=== PATIENT | female | born 1995 | race Caucasian/White ===

== ENCOUNTER 2017-01-11 20:44 | Emergency (ER) | payer OTHER ==
[~2017-01-11] VITALS: Ht 157.5 cm; Wt 86.3 kg
[~2017-01-11 20:44] MED LIST: CEPH-264 PO
[2017-01-11 20:55] VITALS: BP 123/62
--- NOTE | 2017-01-11 21:25 | PHYS DOC ---
Past History Past Medical History: No Pertinent History Past Surgical History: Tubal ligation, Other Smoking: Non-smoker Alcohol Use: None Drug Use: None Adult General Chief Complaint Chief Complaint: COUGH HPI HPI He is a pleasant otherwise healthy 21-year-old female with history of history of nonproductive cough. This certainly is a aefj-ak-dset mom with 3 children at home who presents with a nonproductive cough runny nose congestion for last 3 weeks. She is tried multiple elmn-zrk-cmcicrr medications with limited success she is denies chest pain or shortness of breath with this cough she has had multiple small intermittent nosebleeds secondary to coughing so hard and post tussive emesis. She denies any hearing loss or ear drainage mucopurulent discharge from her nose high fevers or sick contacts. She also denies any travel outside the country recent antibiotic use or sick contacts with similar symptoms. Looking for a cough suppressant and want to make sure she doesn't have bronchitis. She is a nonsmoker there is a family history of asthma in her brother that was resolved when he outgrew it. Review of Systems Review of Systems Constitutional: Denies fever or chills [] Eyes: Denies change in visual acuity, redness, or eye pain [] HENT: He's had nasal congestion and intermittent epistaxis Respiratory: Has had intermittent cough nonproductive with no shortness of breath. Cardiovascular: No additional information not addressed in HPI [] GI: Rising abdominal pain and has had posttussive emesis times one nonbilious nonbloody. : Denies dysuria or hematuria [] Musculoskeletal: Denies back pain or joint pain [] Integument: Denies rash or skin lesions [] Neurologic: Denies headache, focal weakness or sensory changes [] Endocrine: Denies polyuria or polydipsia [] Allergies Allergies Allergies Coded Allergies Type Severity Reaction Last Updated Verified Iodinated Contrast Media - Oral and Allergy Intermediate 10/18/16 Yes shellfish derived Allergy Intermediate 10/18/16 Yes Physical Exam Physical Exam Constitutional: Well developed, well nourished, patient is uncomfortable but nontoxic. Non-cough is evident on exam. HENT: Normocephalic, atraumatic, bilateral external ears normal, noted nasal discharge clear oropharynx clear with mild erythema no exudates no tonsillar hypertrophy. Eyes: PERRLA, EOMI, conjunctiva normal, no discharge. [] Neck: Normal range of motion, no tenderness, supple, no stridor. [] Cardiovascular:Heart rate regular rhythm, no murmur [] Lungs & Thorax: Bilateral breath sounds clear to auscultation A be a slight wheeze with cough. Skin: Warm, dry, no erythema, no rash. [] Back: No tenderness, no CVA tenderness. [] Extremities: No tenderness, no cyanosis, no clubbing, ROM intact, no edema. [] Neurologic: Alert and oriented X 3, normal motor function, normal sensory function, no focal deficits noted. [] Psychologic: Affect normal, judgement normal, mood normal. [] Current Patient Data Vital Signs Vital Signs Date Time Temp Pulse Resp B/P (MAP) Pulse Ox O2 Delivery O2 Flow Rate FiO2 01/11/17 20:55 98.8 110 20 97 Room Air EKG EKG [] Radiology/Procedures Radiology/Procedures Chest x-ray time 214501/11/2017 read by me and states no clear infiltrate questional patchy increased hilar markings which may represent viral pneumonitis no clear consolidation or pleural effusion noted no pneumothorax no pneumomediastinum no subcutaneous air bony windows are within normal limits with no evidence of fracture cardiac set is within normal limits chest x-ray read by me [] Course & Med Decision Making Course & Med Decision Making Pertinent Labs and Imaging studies reviewed. (See chart for details) Trev with a 3 week history of nonproductive cough runny nose and congestion she has had no evidence of wheezing but has had no improvement with over-the- counter medications. She does have a history of seizure disorder facility for medication seizure. On examination she has a slight wheeze with cough which may be secondary to a mild reactive airway disease. She'll be given an inhaler Pro Air with spacer as well as a course of antibiotics and close follow-up with her primary care doctor. Differential diagnosis includes pneumonia, mediastinitis, pneumonitis, viral syndrome, postnasal drip, esophageal reflux, fluids, and reactive airway disease. At this point in time patient is hemodynamic stable x- rays clear any focal infiltrates. Patient will be treated with albuterol, azithromycin, and Tylenol 3. His noted patient's vital signs showed mild tachycardia which is likely from cmgk-pti-dvsvpvw medication to include Dimetapp , Robitussin with pseudoephedrine as well as DayQuil and NyQuil. These over-the- counter medications with Benadryl or antihistamines or pseudoephedrine and the may cause tachycardias. There is no obvious signs of toxidrome Impression bronchitis infectious, cough Disposition discharge with 48 of follow-up to primary care doctor precautions given [] Kwame Disclaimer Dragon Disclaimer This chart was dictated in whole or in part using Voice Recognition software in a busy, high-work load, and often noisy Emergency Department environment. It may contain unintended and wholly unrecognized errors or omissions. Departure Departure: Impression: Primary Impression: Bronchitis Disposition: HOME, SELF-CARE Condition: IMPROVED Referrals: PCP,UNKNOWN (PCP) Patient Instructions: Acute Bronchitis Additional Instructions: Please return for any new or increasing symptoms or Any cough. Productive with a fever greater than 102.2 despite treatment please return for any questions or concerns she might have or new developing rash change in voice sore throat that' s getting progressively worse with difficulty swallowing. Scripts Acetaminophen With Codeine (TYLENOL WITH CODEINE #3 TABLET) 1 Each Tablet 1 TAB PO Q4-6HRS, #10 TAB Prov: SASHA SIDHU MD 01/11/17 Azithromycin (ZITHROMAX) 500 Mg Tablet 1 TAB PO DAILY for 5 Days, #6 TAB Prov: SASHA SIDHU MD 01/11/17 Albuterol Sulfate (PROAIR HFA INHALER) 8.5 Gm Hfa.aer.ad 2 PUFF INH PRN Q6HRS Y for SHORTNESS OF BREATH for 10 Days, INHALER 0 Refills Prov: SASHA SIDHU MD 01/11/17 SASHA SIDHU MD January 11, 2017 21:25
[2017-01-11] MEDS ORDERED: ACET-704 PO (22:12)
[2017-01-11] MEDS ORDERED: AZIT500T PO (22:12)
[2017-01-11] MEDS ORDERED: ALBU8.5H8 INH (22:12)
[2017-01-11] MEDS ORDERED: ACETAMINOPHEN/CODEINE 300/30MG TABLET PO ONE (22:45)
--- NOTE | 2017-01-12 08:26 | RAD ---
Indication cough. Frontal and lateral views of the chest were obtained. Comparison is made to an examination 10/18/2016. The heart, pulmonary vessels and mediastinum appear normal. The lungs are clear of acute infiltrates. There is no pleural fluid or pneumothorax and the bony structures appear grossly intact. IMPRESSION: No acute finding apparent in the chest
== END 2017-01-11 22:30 | disposition home or self-care (01) ==
LOC: ER 20:44
DX: J20.9 Acute bronchitis, unspecified (principal); R04.0 Epistaxis; Z91.041 Radiographic dye allergy status; Z91.013 Allergy to seafood
CPT/HCPCS: 71020; 99284

== ENCOUNTER 2017-05-22 17:48 | Emergency (ER) | payer OTHER ==
[~2017-05-22] VITALS: Ht 157.5 cm; Wt 81.6 kg
[~2017-05-22 17:48] MED LIST changes: +ACET-704 PO; +ALBU8.5H8 INH; +AZIT500T PO
[2017-05-22] MEDS ORDERED: IV NORMAL SALINE 1,000ML 1,000 ML IV ONE (18:15)
--- NOTE | 2017-05-22 18:34 | EKG ---
[address] [address] Test Date: 2017-05-22 Test Time: 18:28:29 Pat Name: GERMAN LORD Department: Room: Gender: F Paper Supervisor: MÓNICA : 1995 Requested By: JACKLYN COLLIER Order Number: [id number] Reading MD: Erwin Perez Measurements Intervals [place] Rate: 60 P: 36 MA: 134 QRS: 73 QRSD: 82 T: 52 QT: 388 QTc: 392 Interpretive Statements SINUS RHYTHM Electronically Signed On 05-26-2017 11:15:59 CDT by Erwin Perez
[2017-05-22 18:40] LABS: CALCIUM 8.4 mg/dL (8.5-10.1); CREATININE 0.5 mg/dL (0.6-1.0); GFR 152.9; POTASSIUM 3.3 mmol/L (3.5-5.1)
[2017-05-22 18:43] LABS: BASO % 0 % (0-3); EOS # 0.1 x10^3/uL (0.0-0.7); EOS % 2 % (0-3); HEMATOCRIT 38.2 % (36.0-47.0); HEMOGLOBIN 13.2 g/dL (12.0-15.5); LYMPH # 3.2 x10^3/uL (1.0-4.8); LYMPH % 38 % (24-48); MEAN CORPUSCULAR HEMOGLOBIN 31 pg (25-35); MEAN CORPUSCULAR HGB CONC 35 g/dL (31-37); MEAN CORPUSCULAR VOLUME 90 fL (79-100); MONO # 0.6 x10^3/uL (0.0-1.1); MONO % 8 % (0-9); NEUT # 4.3 x10^3uL (1.8-7.7); NEUT % 52 % (31-73); PLATELET COUNT 156 x10^3/uL (140-400); RED BLOOD COUNT 4.24 x10^6/uL (3.50-5.40); RED CELL DISTRIBUTION WIDTH 14.2 % (11.5-14.5); WHITE BLOOD COUNT 8.3 x10^3/uL (4.0-11.0)
--- NOTE | 2017-05-22 19:03 | ED.ADGEN ---
Past History Past Medical History: Seizure Past Surgical History: Tubal ligation, Other Smoking: Non-smoker Alcohol Use: None Drug Use: None Adult General HPI HPI Patient is a 21-year-old woman, history of seizure disorder for which she takes Keppra, who follows with Dr. Telles of neurology, who presents to the emergency department after being found lying in her bedroom by her mother. Patient states that she's not sure what happened, she may have had a seizure. Patient's mother states this happen multiple times previously. Patient states she was seen by her neurologist a few days ago, an EEG performed that did not reveal any concerning findings, as been taking her Keppra as directed. She states she has seizures frequently. She states they told her they could be "due to stress". She denies any ingestions or exposures, any recent injuries. States she has been compliant with her medications, states she is currently being treated for urinary tract infection with antibiotics. She was seen in the emergency department and another facility yesterday at that time had an ultrasound performed that revealed a hemangioma in her liver. She is complaining of a headache, typical of her seizures, and soreness in her neck and back. Weakness, numbness or tingling, fevers or chills, nausea vomiting, diarrhea, no rashes, no swelling extremities, no preceding symptoms or complaints. Denies any drugs, alcohol or cigarettes. Patient's mother is at bedside, she states patient's presentation is consistent with previous episodes of seizure. Review of Systems Review of Systems Constitutional: Denies fever or chills [] Eyes: Denies change in visual acuity, redness, or eye pain [] HENT: Denies nasal congestion or sore throat [] Respiratory: Denies cough or shortness of breath [] Cardiovascular: No additional information not addressed in HPI [] GI: Denies abdominal pain, nausea, vomiting, bloody stools or diarrhea [] : Denies dysuria or hematuria [] Musculoskeletal: Denies back pain or joint pain []is complaining of soreness on the left side of her neck, and lower back. Integument: Denies rash or skin lesions [] Neurologic: Denies focal weakness or sensory changes, complaining of posterior headache. [] Endocrine: Denies polyuria or polydipsia [] Current Medications Current Medications Current Medications Medications (Trade) Dose Ordered Sig/Cata Start Time Stop Time Status Last Admin Dose Admin Potassium Chloride (KCl Oral Soln) 40 meq 1X ONCE 05/22/17 20:30 05/22/17 20:31 DC 05/22/17 20:22 40 MEQ Sodium Chloride 1,000 ml @ 1,000 mls/hr 1X ONCE 05/22/17 18:15 05/22/17 19:14 DC 05/22/17 18:36 1,000 MLS/HR Allergies Allergies Allergies Coded Allergies Type Severity Reaction Last Updated Verified Iodinated Contrast Media - Oral and Allergy Intermediate 10/18/16 Yes shellfish derived Allergy Intermediate 10/18/16 Yes Physical Exam Physical Exam Constitutional: Well developed, well nourished, no acute distress, non-toxic appearance. [] HENT: Normocephalic, atraumatic, bilateral external ears normal, oropharynx moist, no oral exudates, nose normal. [] Eyes: PERRLA, EOMI, conjunctiva normal, no discharge. [] Neck: Normal range of motion, patient with c-collar placed, which was cleared without issue, patient with mild thrush palpation in the left paraspinal muscles and into left trapezius. No tenderness, supple, no stridor. [] Cardiovascular:Heart rate regular rhythm, no murmur, S1, S2, rubs or gallops. [] Lungs & Thorax: Bilateral breath sounds clear to auscultation, no wheezing, rhonchi, rales. No chest or crepitus or tenderness. [] Abdomen: Bowel sounds normal, soft, no tenderness, no masses, no pulsatile masses. [] Skin: Warm, dry, no erythema, no rash. [] Back: No midline tenderness, no cells or deformities, patient with mild thrush palpation in the paraspinal muscles of the right lumbar spine, mild tissue tension noted, no lesions, no signs of trauma, no CVA tenderness. [] Extremities: No tenderness, no cyanosis, no clubbing, ROM intact, no edema. [] Neurologic: Alert and oriented X 3, normal motor function, normal sensory function, no focal deficits noted. []Patient with 5 out of 5 strength in all extremities, following all commands without issue, with a GCS of 15. Psychologic: Affect normal, judgement normal, mood normal. [] Current Patient Data Vital Signs Vital Signs Date Time Temp Pulse Resp B/P (MAP) Pulse Ox O2 Delivery O2 Flow Rate FiO2 05/22/17 19:18 98.3 74 20 118/53 (74) 98 Room Air Lab Results Laboratory Tests Test 05/22/17 18:20 05/22/17 19:05 White Blood Count 8.3 x10^3/uL (4.0-11.0) Red Blood Count 4.24 x10^6/uL (3.50-5.40) Hemoglobin 13.2 g/dL (12.0-15.5) Hematocrit 38.2 % (36.0-47.0) Mean Corpuscular Volume 90 fL (79-100) Mean Corpuscular Hemoglobin 31 pg (25-35) Mean Corpuscular Hemoglobin Concent 35 g/dL (31-37) Red Cell Distribution Width 14.2 % (11.5-14.5) Platelet Count 156 x10^3/uL (140-400) Neutrophils (%) (Auto) 52 % (31-73) Lymphocytes (%) (Auto) 38 % (24-48) Monocytes (%) (Auto) 8 % (0-9) Eosinophils (%) (Auto) 2 % (0-3) Basophils (%) (Auto) 0 % (0-3) Neutrophils # (Auto) 4.3 x10^3uL (1.8-7.7) Lymphocytes # (Auto) 3.2 x10^3/uL (1.0-4.8) Monocytes # (Auto) 0.6 x10^3/uL (0.0-1.1) Eosinophils # (Auto) 0.1 x10^3/uL (0.0-0.7) Basophils # (Auto) 0.0 x10^3/uL (0.0-0.2) Sodium Level 141 mmol/L (136-145) Potassium Level 3.3 mmol/L (3.5-5.1) L Chloride Level 106 mmol/L (98-107) Carbon Dioxide Level 25 mmol/L (21-32) Anion Gap 10 (6-14) Blood Urea Nitrogen 6 mg/dL (7-20) L Creatinine 0.5 mg/dL (0.6-1.0) L Estimated GFR (Cockcroft-Gault) 152.9 Glucose Level 80 mg/dL (70-99) Lactic Acid Level 0.9 mmol/L (0.4-2.0) Calcium Level 8.4 mg/dL (8.5-10.1) L Total Bilirubin 0.3 mg/dL (0.2-1.0) Direct Bilirubin 0.1 mg/dL (0.0-0.2) Aspartate Amino Transferase (AST) 9 U/L (15-37) L Alanine Aminotransferase (ALT) 15 U/L (14-59) Alkaline Phosphatase 74 U/L (46-116) Total Protein 5.9 g/dL (6.4-8.2) L Albumin 3.2 g/dL (3.4-5.0) L Urine Collection Type Unknown Urine Color Yellow Urine Clarity Hazy Urine pH 6.5 Urine Specific [place] 1.025 Urine Protein Trace (NEG-TRACE) Urine Glucose (UA) Neg mg/dL (NEG) Urine Ketones (Stick) >=160 mg/dL (NEG) Urine Blood Neg (NEG) Urine Nitrite Neg (NEG) Urine Bilirubin Neg (NEG) Urine Urobilinogen Dipstick 0.2 mg/dL (0.2 mg/dL) Urine Leukocyte Esterase Trace (NEG) Urine RBC 1-2 /HPF (0-2) Urine WBC 1-4 /HPF (0-4) Urine Squamous Epithelial Cells Mod /LPF Urine Bacteria 0 /HPF (0-FEW) Urine Mucus Marked /LPF Urine Opiates Screen Neg (NEG) Urine Methadone Screen Neg (NEG) Urine Barbiturates Neg (NEG) Urine Phencyclidine Screen Neg (NEG) Urine Amphetamine/Methamphetamine Neg (NEG) Urine Benzodiazepines Screen Neg (NEG) Urine Cocaine Screen Neg (NEG) Urine Cannabinoids Screen Neg (NEG) Urine Ethyl Alcohol Neg (NEG) EKG EKG EC: Sinus rhythm, heart rate 60 beats are minute, upright axis, QTC of 392, MS 134, QRS of 82, no ST elevations or depressions, no evidence of acute ST abnormalities. As interpreted by me.[] Radiology/Procedures Radiology/Procedures Not indicated.[] Course & Med Decision Making Course & Med Decision Making Pertinent Labs and Imaging studies reviewed. (See chart for details) Patient moving all extremities, following all commands, has a mild headache, consistent with previous seizure episodes per her report report of mother bedside. Laboratory studies obtained, reveal a lactic is normal at 0.9, potassium is slightly low at 3.3, no other concerning findings identified. I did attempt to reach the patient's neurologist, Dr. Telles, message left at [phone] and [phone], but was unsuccessful in speaking to the physician. Patient was observed in the emergency department for more than 4 hours, without recurrence of any concerning symptoms, she is amply without difficulty, and taking by mouth fluids, conversing, and has developed no concerning findings. I discussed with patient that was unable to reach Dr. dumont at this time, patient states that she is ready to be discharged home, and will contact the office tomorrow morning for additional discussion and evaluation. We did discuss concerning symptoms that prompt return with both patient and mother bedside, patient and mother voiced understanding and agreement with plan and precautions. Patient to continue medications, and return to the ED if any new or concerning symptoms develop. Final Impression Final Impression [] Problems: Dragon Disclaimer Dragon Disclaimer This electronic medical record was generated, in whole or in part, using a voice recognition dictation system. Departure: Impression: Primary Impression: Seizure Disposition: 01 HOME, SELF-CARE Condition: IMPROVED JACKLYN COLLIER DO May 22, 2017 19:03
[2017-05-22 19:12] LABS: ALBUMIN 3.2 g/dL (3.4-5.0); DIRECT BILIRUBIN 0.1 mg/dL (0.0-0.2); TOTAL BILIRUBIN 0.3 mg/dL (0.2-1.0); TOTAL PROTEIN 5.9 g/dL (6.4-8.2)
[2017-05-22 19:34] LABS: BARBITURATES NEG (NEG); BENZODIAZEPINES NEG (NEG); CANNABINOIDS NEG (NEG); COCAINE NEG (NEG); METHADONE NEG (NEG); OPIATES NEG (NEG); PHENCYCLIDINE NEG (NEG)
[2017-05-22 19:35] LABS: AMPHETAMINE/METHAMPHETAMINE NEG (NEG)
[2017-05-22 19:49] LABS: BACTERIA,URINE 0 /HPF (0-FEW); BILIRUBIN,URINE NEG (NEG); CLARITY,URINE HAZY; COLOR,URINE YELLOW; GLUCOSE,URINE NEG (NEG); NITRITE,URINE NEG (NEG); SQUAMOUS EPITHELIAL CELL,UR MOD /LPF; UROBILINOGEN,URINE 0.2 mg/dL (0.2 mg/dL)
[2017-05-22] MEDS ORDERED: POTASSIUM CHLORIDE 20 MEQ/15 ML ORAL LIQUID. PO ONE (20:30)
[2017-05-22 22:00] VITALS: BP 131/79
== END 2017-05-22 22:50 | disposition home or self-care (01) ==
LOC: ER 17:48
DX: G40.909 Epilepsy, unspecified, not intractable, without status epilepticus (principal); R51 Headache; M54.2 Cervicalgia; M54.5 Low back pain; Z87.440 Personal history of urinary (tract) infections; Z91.041 Radiographic dye allergy status; Z91.013 Allergy to seafood
CPT/HCPCS: 36415; 80048; 80076; 80307; 81001; 83605; 85025; 93005; 96360; 96361; 99285-25; G0479; J7030

== ENCOUNTER 2017-08-02 11:54 | Emergency (ER) | payer OTHER ==
[2017-08-02] MEDS ORDERED: IV NORMAL SALINE 1,000ML 1,000 ML IV ONE ×2 (12:45)
[2017-08-02] MEDS ORDERED: ONDANSETRON PF 4 MG/2 ML VIAL. IV ONE (13:00)
[2017-08-02 13:32] LABS: BASO % 0 % (0-3); EOS # 0.1 x10^3/uL (0.0-0.7); EOS % 1 % (0-3); HEMOGLOBIN 14.4 g/dL (12.0-15.5); LYMPH % 44 % (24-48); MEAN CORPUSCULAR HEMOGLOBIN 31 pg (25-35); MEAN CORPUSCULAR HGB CONC 34 g/dL (31-37); MEAN CORPUSCULAR VOLUME 91 fL (79-100); MONO # 0.6 x10^3/uL (0.0-1.1); MONO % 7 % (0-9); NEUT # 4.3 x10^3uL (1.8-7.7); NEUT % 48 % (31-73); PLATELET COUNT 176 x10^3/uL (140-400); RED BLOOD COUNT 4.62 x10^6/uL (3.50-5.40); RED CELL DISTRIBUTION WIDTH 13.5 % (11.5-14.5); WHITE BLOOD COUNT 9.1 x10^3/uL (4.0-11.0)
[2017-08-02 13:43] LABS: CLARITY,URINE CLOUDY; COLOR,URINE YELLOW
[2017-08-02 13:44] LABS: BILIRUBIN,URINE NEG (NEG); GLUCOSE,URINE NEG (NEG); NITRITE,URINE NEG (NEG); RBC,URINE OCC /HPF (0-2); UROBILINOGEN,URINE 2 mg/dL (0.2 mg/dL)
[2017-08-02 13:45] LABS: ALBUMIN 3.5 g/dL (3.4-5.0); CALCIUM 9.1 mg/dL (8.5-10.1); CREATININE 0.6 mg/dL (0.6-1.0); GFR 123.9; POTASSIUM 4.1 mmol/L (3.5-5.1); TOTAL BILIRUBIN 0.4 mg/dL (0.2-1.0)
[2017-08-02 13:45] LABS: BACTERIA,URINE 0 /HPF (0-FEW); SQUAMOUS EPITHELIAL CELL,UR FEW /LPF
--- NOTE | 2017-08-02 14:54 | PHYS DOC ---
Past History Past Medical History: Seizure Past Surgical History: Tubal ligation, Other Smoking: Non-smoker Alcohol Use: None Drug Use: None Adult General Chief Complaint Chief Complaint: DIZZY/LIGHT HEADED HPI HPI Patient is a 21-year-old female who presents to the ER today secondary to dizziness. Patient reports that she's had a history significant for a gastric bypass done. Patient reports she's had decreased by mouth intake and thinks that she might be dehydrated. Patient denies any nausea vomiting diarrhea. Patient reports no change in by mouth intake since her bypass although she has minimal intake orally secondary to her bypass. Patient reports that she gets dizzy when she sits up. Sometimes feels dizzy when she lays down as well. Patient has any fevers shakes chills nausea vomiting diarrhea chest pain terns of breath cough cold rhinorrhea. Patient denies any dysuria frequency urgency. Patient has any melena or bright red blood per rectum. Review of systems: Constitutional: Denies fever or chills Eyes: Denies change in visual acuity, redness, or eye pain HENT: Denies nasal congestion or sore throat Respiratory: Denies cough or shortness of breath All other systems were reviewed and found to be within normal limits, except as documented in this note. Physical exam: Constitutional: Well developed, well nourished, no acute distress, non-toxic appearance. HENT: Normocephalic, atraumatic, bilateral external ears normal, nose normal. Eyes: PERRLA, EOMI, conjunctiva normal, no discharge. Neck: Normal range of motion, no tenderness, supple, no stridor. Cardiovascular: Heart rate regular rhythm, Lungs & Thorax: Bilateral breath sounds clear to auscultation Abdomen: No abdominal distention. Skin: Warm, dry, no erythema, no rash. Back: Normal spinal curvature Extremities: No tenderness, no cyanosis, no clubbing, ROM intact, no edema. Neurologic: Alert and oriented X 3, normal motor function, normal sensory function, no focal deficits noted. Psychologic: Affect normal, judgement normal, mood normal. Patient's ER physical exam was most unremarkable: Abdomen was soft nontender no rebound or guarding. Normal active bowel sounds. No psoas or obturator signs. Neuro exam was unremarkable. She is alert awake and oriented 3. No nystagmus. TMs were clear. Labs reviewed: Assessment and plan: 1. Dizziness: Most likely secondary to dehydration. Patient is not exhibiting signs or symptoms consistent with a neurological deficit. Patient was given 2 L of normal saline here in the ED and feels significantly improved. Patient's labs were all within normal limits. Patient be discharged home with instructions follow-up with primary care physician on Friday. Current Medications Current Medications Current Medications Medications (Trade) Dose Ordered Sig/Cata Start Time Stop Time Status Last Admin Dose Admin Ondansetron HCl (Zofran) 4 mg 1X ONCE 08/02/17 13:00 08/02/17 13:01 DC Sodium Chloride 1,000 ml @ 1,000 mls/hr 1X ONCE 08/02/17 12:45 08/02/17 13:44 DC 08/02/17 14:20 1,000 MLS/HR Allergies Allergies Allergies Coded Allergies Type Severity Reaction Last Updated Verified Iodinated Contrast Media - Oral and Allergy Intermediate 10/18/16 Yes shellfish derived Allergy Intermediate 10/18/16 Yes Current Patient Data Lab Results Laboratory Tests Test 08/02/17 12:30 08/02/17 13:15 08/02/17 14:14 Urine Collection Type Unknown Urine Color Yellow Urine Clarity Cloudy Urine pH >8.5 Urine Specific [place] 1.020 Urine Protein 30 mg/dl (NEG-TRACE) Urine Glucose (UA) Neg mg/dL (NEG) Urine Ketones (Stick) >=160 mg/dL (NEG) Urine Blood Neg (NEG) Urine Nitrite Neg (NEG) Urine Bilirubin Neg (NEG) Urine Urobilinogen Dipstick 2 mg/dL (0.2 mg/dL) Urine Leukocyte Esterase Trace (NEG) Urine RBC Occ /HPF (0-2) Urine WBC 5-10 /HPF (0-4) Urine Squamous Epithelial Cells Few /LPF Urine Bacteria 0 /HPF (0-FEW) Urine Mucus Marked /LPF White Blood Count 9.1 x10^3/uL (4.0-11.0) Red Blood Count 4.62 x10^6/uL (3.50-5.40) Hemoglobin 14.4 g/dL (12.0-15.5) Hematocrit 42.0 % (36.0-47.0) Mean Corpuscular Volume 91 fL (79-100) Mean Corpuscular Hemoglobin 31 pg (25-35) Mean Corpuscular Hemoglobin Concent 34 g/dL (31-37) Red Cell Distribution Width 13.5 % (11.5-14.5) Platelet Count 176 x10^3/uL (140-400) Neutrophils (%) (Auto) 48 % (31-73) Lymphocytes (%) (Auto) 44 % (24-48) Monocytes (%) (Auto) 7 % (0-9) Eosinophils (%) (Auto) 1 % (0-3) Basophils (%) (Auto) 0 % (0-3) Neutrophils # (Auto) 4.3 x10^3uL (1.8-7.7) Lymphocytes # (Auto) 4.0 x10^3/uL (1.0-4.8) Monocytes # (Auto) 0.6 x10^3/uL (0.0-1.1) Eosinophils # (Auto) 0.1 x10^3/uL (0.0-0.7) Basophils # (Auto) 0.0 x10^3/uL (0.0-0.2) Sodium Level 142 mmol/L (136-145) Potassium Level 4.1 mmol/L (3.5-5.1) Chloride Level 106 mmol/L (98-107) Carbon Dioxide Level 29 mmol/L (21-32) Anion Gap 7 (6-14) Blood Urea Nitrogen 14 mg/dL (7-20) Creatinine 0.6 mg/dL (0.6-1.0) Estimated GFR (Cockcroft-Gault) 123.9 BUN/Creatinine Ratio 23 (6-20) H Glucose Level 87 mg/dL (70-99) Calcium Level 9.1 mg/dL (8.5-10.1) Total Bilirubin 0.4 mg/dL (0.2-1.0) Aspartate Amino Transferase (AST) 16 U/L (15-37) Alanine Aminotransferase (ALT) 20 U/L (14-59) Alkaline Phosphatase 74 U/L (46-116) Total Protein 7.0 g/dL (6.4-8.2) Albumin 3.5 g/dL (3.4-5.0) Albumin/Globulin Ratio 1.0 (1.0-1.7) POC Urine HCG, Qualitative hcg negative (Negative) EKG EKG [] Radiology/Procedures Radiology/Procedures [] Course & Med Decision Making Course & Med Decision Making Pertinent Labs and Imaging studies reviewed. (See chart for details) [] Dragon Disclaimer Dragon Disclaimer This electronic medical record was generated, in whole or in part, using a voice recognition dictation system. Departure Departure: Impression: Primary Impression: Dizziness Additional Impression: Dehydration Disposition: 01 HOME, SELF-CARE Condition: IMPROVED Referrals: PCP,UNKNOWN (PCP) Patient Instructions: Dehydration, Adult, Dizziness Problem Qualifiers NASIM FARMER MD Aug 02, 2017 14:54
[2017-08-02 15:00] VITALS: BP 103/59
== END 2017-08-02 15:00 | disposition home or self-care (01) ==
LOC: ER 11:54
DX: E86.0 Dehydration (principal); Z98.84 Bariatric surgery status; Z91.041 Radiographic dye allergy status; Z91.013 Allergy to seafood
CPT/HCPCS: 36415; 80053; 81001; 81025; 85025; 87086; 96360; 96361; 99285-25; J7030